=== PATIENT | female | born 1965 | race Caucasian/White ===

== ENCOUNTER 2016-08-20 10:36 | Day surgery (SDC) | payer BC ==
[~2016-08-20 10:36] MED LIST: RINGERS SOLUTION,LACTATED 1,000 ML IV PRN
[2016-08-20] MEDS ORDERED: PROMETHAZINE HCL 12.5 MG in DEXTROSE 5 % IN WATER 50 ML IV PRN ×2 (11:35)
[2016-08-20] MEDS ORDERED: RINGERS SOLUTION,LACTATED 1,000 ML IV ONE ×2 (11:35→13:00)
[2016-08-20] MEDS ORDERED: NALOXONE HCL 0.4 MG/ML VIAL IV PRN (11:35)
[2016-08-20] MEDS ORDERED: HYDROmorphone HCL 2 MG/ML VIAL IV PRN (11:35)
[2016-08-20] MEDS ORDERED: diphenhydrAMINE HCL 50 MG/ML VIAL IV PRN (11:35)
[2016-08-20] MEDS ORDERED: SCOPOLAMINE HYDROBROMIDE 1.5 MG PATC TD ONE (12:00)
[2016-08-20] MEDS ORDERED: BUPIVACAINE HCL/EPINEPHRINE 50 ML VIAL IJ ONE (13:00)
--- NOTE | 2016-08-20 13:42 | OR ---
Operative Report - Dictated Report Narrative: Date: 08/20/2016 Preop: Biliary dyskinesia, incarcerated umbilical hernia Postop: same Proc: Laparoscopic cholecystectomy, primary repair of umbilical hernia Surgeon: Jason Haywood MD EBL: [id number] Specimen: gallbladder Anesth: GETA Drains: none Comps: none apparent Description: Pt placed in supine position. Following GETA the abdomen was prepped and draped in a sterile fashion. All port sites anesthetized with marcain prior to incision. Supraumbilical incision carried down to umbilical hernia. Incarcerated properitoneal fat excised with cautery. 5mm port inserted through this 5mm hernia defect. Abdomen insufflated with CO2 to a pressure of 15mmHg. Under direct vision superior midline 5mm and two right flank 5mm ports inserted. Fundus of GB grasped and elevated to diaphragm. Adhesions bluntly taken down. Infundibulum grasped for countertraction. Cystic duct and artery isolated with a critical view of safety and individually doubly clipped and divided. Gallbladder removed from fossa with scissors and cautery and deliver through superior midline port. Port returned to abdominal cavity. Pneumoperitoneum re-established. Inspection carried out. Hemostasis was adequate without evidence of bile leak. Remainder of marcaine squirted into peritoneal cavity. Pneumoperitoneum evacuated and ports removed. Umbilical hernia defect closed with figure-8 heavy vicryl suture. Incisions closed with subcuticular stitched of 4-0 vicryl and sealed with dermabond. Pt tolerated the procedure well and was discharged from the operating room in stable condition.
[2016-08-20] MEDS ORDERED: traMADol HCL 50 MG TABLET PO PRN (14:42)
[2016-08-20] MEDS ORDERED: traMADol HCL 50 MG TABLET ONE ×2 (14:47→14:53)
[2016-08-20 18:08] VITALS: BP 129/71
== END 2016-08-20 10:37 | disposition home or self-care (01) ==
LOC: AMB 10:36
PROVIDERS: ATTEND Specialist
PROC: 0WQF0ZZ Repair Abdominal Wall, Open Approach (ICD-10-PCS; principal; 2016-08-20 12:15)
PROC: 0FT44ZZ Resection of Gallbladder, Percutaneous Endoscopic Approach (ICD-10-PCS; 2016-08-20 12:15)
DX: K80.10 Calculus of gallbladder with chronic cholecystitis without obstruction (principal); K82.8 Other specified diseases of gallbladder; K42.0 Umbilical hernia with obstruction, without gangrene; E78.5 Hyperlipidemia, unspecified; Z87.891 Personal history of nicotine dependence; Z68.34 Body mass index [BMI] 34.0-34.9, adult

== ENCOUNTER 2017-03-10 12:07 | Day surgery (SDC) | payer BC ==
[2017-03-10 12:59] VITALS: BP 131/76
== END 2017-03-10 12:08 | disposition home or self-care (01) ==
LOC: AMB 12:07
PROVIDERS: ATTEND Ophthalmology
PROC: 089C3ZZ Drainage of Right Iris, Percutaneous Approach (ICD-10-PCS; principal; 2017-03-10 12:35)
DX: H40.032 Anatomical narrow angle, left eye (principal); Z87.891 Personal history of nicotine dependence